=== PATIENT | female | born 1995 | race Caucasian/White ===

== ENCOUNTER → 2016-11-29 17:59 | Observation (INO) ==
[2016-11-29 16:23] LABS: Bilirubin,Urine Negative (Negative); Blood,Urine Negative (Negative); Clarity,Urine Cloudy (Clear); Color,Urine Yellow (Yellow); Glucose,Urine (UA) Normal (Normal); Ketones,Urine Negative (Negative); Leukocyte Esterase,Urine Trace (Negative); Nitrite,Urine Negative (Negative); PH,Urine 6.5 pH Units (5.0-8.0); Protein,Urine Negative (Neg-Trace); Specific Gravity,Urine 1.007 (1.010-1.025); Urobilinogen,Urine Normal (Normal)
[2016-11-29 16:25] LABS: Bacteria,Urine Few per hpf (None-Few); Hyaline Casts,Urine None Seen per lpf (None-Few); RBC,Urine 0-3 per hpf (0-3); Squamous Epithelial Cell,Urine Many per lpf (None-Few)
--- NOTE | 2016-11-29 17:16 | OB/GYN History & Physical ---
Date of Encounter: 11/29/16 Time of Encounter: 17:14 Assessment and Plan (1) 34 weeks gestation of Current visit: Yes Status: Acute - continue to monitor. - NST (2) Diarrhea Current visit: Yes Status: Acute - loperimide if symptoms progress - encourage fluid intake Qualifiers: Diarrhea type: unspecified type Qualified Code(s): R19.7 - Diarrhea, unspecified History of Present Illness HPI: Ms. Meek is a 21 year old female with an uncomplicated is presenting with a 2 day history of diarrhea and pelvic cramping. She reports a clear watery vaginal discharge. She denies any N/V. She denies feeling any contractions. Her cervix is posterior and firm. Past Med Surg Social Fam HX - Past Medical History Medical history: no medical history Psychiatric history: no psych history - Past Surgical History Surgical History: no surgical history - Social History Smoking Status: Never smoker Smokeless Tobacco Status: No Alcohol use: none Drug use: none - Family History Mother Hx Family Medical Disorders: No Obstetrical History - Pregnancies : 2 Para: 1 Medications and Allergies Vit/FA 1 each PO DAILY 08/29/15 [History] Ibuprofen [Motrin] 600 mg PO Q6H PRN #40 tablet 08/31/15 [Rx] Allergies Penicillins Allergy (Verified 08/29/15 09:42) Rash Review of System OB All systems PM: reviewed and no additional remarkable complaints except as stated - Constitutional Constitutional ROS IM: no fever(s), no headache(s), no lethargy, no weakness, no weight loss - Nose, mouth, and throat Nose, mouth and throat: no dizziness, no headache(s), no sinus pain, no sore throat, no vertigo - Cardiovascular Cardiovascular: no chest pain, no chest pain at rest, no dyspnea, no dyspnea on exertion, no edema, no leg edema, no lightheadedness, no pedal edema - Respiratory Respiratory: no cough, no dyspnea, no pain on inspiration, no chest congestion - Gastrointestinal Gastrointestinal: cramping (palvic), diarrhea (for 2 days), no abdominal pain, no bloating, no coffee ground emesis, no dyspepsia, no dysphagia, no hematemesis , no hematochezia, no melena, no nausea, no vomiting - Genitourinary Genitourinary: pelvic pain, vaginal discharge (minor, watery ), no difficulty urinating, no difficulty voiding, no hematuria, no urinary frequency, no urinary hesitancy, no urinary incontinence, no urinary urgency, no vaginal odor , no vaginal pruritis - Integumentary Integumentary: no erythema, no rash, no swelling, no jaundice Exam - Neck Neck exam: full ROM, normal inspection, trachea midline - Lungs Respiratory exam: CTAB - Cardiovascular Cardiovascular exam: RRR - Extremities Extremities exam: full ROM, normal capillary refill, normal inspection, radial pulses palpable and symetrical Results Abnormal lab results Urine Clarity Cloudy (Clear) A 11/29/16 16:00 Ur Specific [place] 1.007 (1.010-1.025) L 11/29/16 16:00 Ur Leukocyte Esterase Trace (Negative) H 11/29/16 16:00 Urine Microscopic WBC 3-5 per hpf (0-3) H 11/29/16 16:00 Ur Squamous Epith Cells Many per lpf (None-Few) H 11/29/16 16:00 Ur Culture Indicated? YES (NO) A 11/29/16 16:00 All other labs normal. - VTE Reasons for not Prescribing Prophylaxis: Treatment not Indicated - Low risk for VTE
--- NOTE | 2016-11-29 17:49 | Discharge Summary ---
Date of Encounter: 11/29/16 Time of Encounter: 17:48 - Discharge Diagnosis (1) 34 weeks gestation of Priority: Primary Status: Acute (2) Diarrhea Priority: Secondary Status: Acute Qualifiers: Diarrhea type: unspecified type Qualified Code(s): R19.7 - Diarrhea, unspecified - Discharge Medications Home Medications: Vit/FA 1 each PO DAILY 08/29/15 [History] Ibuprofen [Motrin] 600 mg PO Q6H PRN #40 tablet 08/31/15 [Rx] Allergies/Adverse Reactions: Allergies Penicillins Allergy (Verified 08/29/15 09:42) Rash Data Procedures and tests throughout hospitalization: Laboratory Tests 11/29/16 16:00 Urine Color Yellow Urine Clarity Cloudy A Urine pH 6.5 Ur Specific [place] 1.007 L Urine Protein Negative Urine Glucose (UA) Normal Urine Ketones Negative Urine Blood Negative Urine Nitrite Negative Urine Bilirubin Negative Urine Urobilinogen Normal Ur Leukocyte Esterase Trace H Urine Microscopic RBC 0-3 Urine Microscopic WBC 3-5 H Ur Squamous Epith Cells Many H Urine Bacteria Few Hyaline Casts None Seen Ur Culture Indicated? YES A Labs on day of discharge: Labs from last 24 hours 11/29/16 16:00 Urine Color Yellow Urine Clarity Cloudy A Urine pH 6.5 Ur Specific [place] 1.007 L Urine Protein Negative Urine Glucose (UA) Normal Urine Ketones Negative Urine Blood Negative Urine Nitrite Negative Urine Bilirubin Negative Urine Urobilinogen Normal Ur Leukocyte Esterase Trace H Urine Microscopic RBC 0-3 Urine Microscopic WBC 3-5 H Ur Squamous Epith Cells Many H Urine Bacteria Few Hyaline Casts None Seen Ur Culture Indicated? YES A Date of admission: 11/29/16 15:26 Primary care physician: Jerel Castro MD - Patient Status Disposition: Home, Self-Care Condition: Good Functional capacity at discharge: independent ambulation Overall status at discharge: patient is back to baseline - Discharge Instructions Follow Up With: Jerel Castro MD [Primary Care Provider] - Estelita Randolph DO [Partnered Physician] - - Diet and Activity Activity: resume usual activities as tolerated Diet: advance to your usual diet Hospital Course ASSOCIATE DOCTOR Time Attestation: Total time spent providing and/or coordinating discharge services: Time Spent: Less than 30 minutes - VTE Reasons for not Prescribing Prophylaxis: Treatment not Indicated - Low risk for VTE
== END | disposition home or self-care (01) ==
LOC: 1NENULAB
PROVIDERS: ADMIT Obstetrics & Gynecology; ATTEND Obstetrics & Gynecology

== ENCOUNTER → 2016-12-21 23:12 | Observation (INO) ==
--- NOTE | 2016-12-22 07:02 | OB/GYN Progress Note ---
Date of Encounter: 12/22/16 Time of Encounter: 07:01 (Triaged by RN) - Assessment and Plan (1) False labor Status: Acute Objective - Vital Signs Vital Signs: Intake and Output 12/21/16 12/21/16 12/22/16 15:59 23:59 07:59 Other: Weight 83 kg
== END | disposition home or self-care (01) ==
LOC: 1NENULAB

== ENCOUNTER 2016-12-23 16:29 | Inpatient (IN) ==
--- NOTE | 2016-12-23 12:14 | OB/GYN History & Physical ---
Date of Encounter: 12/23/16 Time of Encounter: 12:00 Assessment and Plan (1) and not yet delivered in third trimester Current visit: Yes Status: Acute (2) 38 weeks gestation of Current visit: Yes Status: Acute (3) Active labor Current visit: Yes Status: Acute We will admit patient will get her an epidural when ready and plan is to anticipate vaginal delivery. The patient's contractions space out she does not progress on her own after the epidural we will augment with Pitocin. History of Present Illness HPI: Ms. Meek is a 21 year old female 2 para 1 at 38 and one sevenths weeks who presented to labor and delivery with complaint of contractions every 2 minutes starting approximately 2 AM. Patient states she started having contractions by this morning they are every 2-3 minutes was very uncomfortable and came to labor and delivery. Patient was socrates every 2 minutes on admission but was still only 2 cm. Patient was encouraged to ambulate which she did for approximately 1 hour and she got back into bed she states contractions were more uncomfortable and she was now 3 cm. Patient is wanting an epidural when allowed to have one. She denies any leaking of fluid care has been unremarkable. Patient just delivered one year ago with no complications. Patient's GBS status was negative Past Med Surg Social Fam HX - Past Medical History Medical history: no medical history, migraine, other (History of narcolepsy) Psychiatric history: depression - Past Surgical History Surgical History: no surgical history - Social History Smoking Status: Never smoker Smokeless Tobacco Status: No Alcohol use: none Drug use: none Occupational status: unemployed Current living situation: Home - Independent Activity Level: Independent ambulation Recent Out of Country Travel Within the Last 8 Weeks: No Exposure or Possible Exposure to Illness During Travel: No - Family History Father Adopted: No Living Status: Still Living Hx Family Cardiac Disorders: No Hx Family Respiratory Disorders: No Hx Family Cancer: No Hx Family GI Disorders: No Hx Family Genitourinary Disorders: No Hx Family Endocrine Disorder: No Hx Family Musculoskeletal Disorders: No Hx Family Neuromuscular Disorders: No Hx Family Neurologic Disorders: No Hx Family HEENT Disorders: No Hx Family Autoimmune Disorders: No Hx Family Reproductive Disorders: No Hx Family Psychosocial Disorders: No Hx Family Medical Disorders: No - Additional Family History Additional family history: Family history unremarkable Obstetrical History - Pregnancies : 2 Para: 1 Term: 1 : 0 Ab's: 0 Livin Medications and Allergies Allergies Penicillins Allergy (Verified 08/29/15 09:42) Rash Review of System OB All systems PM: reviewed and no additional remarkable complaints except as stated - Genitourinary Genitourinary: other (Patient with complaint of contractions every 2 minutes) Exam - Constitutional Constitutional: well developed, well nourished, average body habitus, moderate distress - HEENT HEENT: PERRL, Mucus Membranes Moist - Neck Neck exam: full ROM - Lungs Respiratory exam: CTAB - Cardiovascular Cardiovascular exam: RRR - Abdomen Abdomen: Present: bowel sounds normal, gravid - Vagina Vagina: Present: normal moisture - Cervix Dilation: 3 Effacement: 80 Station: -2 - Uterus Uterus exam: Present: normal size - Comments Comments: heart tones 140s reactive contractions every 2 minutes Results All other labs normal. - VTE Reasons for not Prescribing Prophylaxis: Treatment not Indicated - Low risk for VTE
[2016-12-23 13:01] LABS: Basophils # 0.1 K/mcL (0.0-0.2); Basophils % 0.4 %; Eosinophils # 0.1 K/mcL (0.0-0.6); Eosinophils % 0.5 %; Hematocrit 32.2 % (35.3-44.9); Immature Granulocytes % 0.8 % (0-4); Lymphocytes # 1.8 K/mcL (0.6-4.6); Mean Corpuscular HGB Conc 31.1 g/dL (31.6-35.5); Mean Corpuscular Hemoglobin 23.8 pg (28.0-33.3); Mean Corpuscular Volume 76.5 fL (83.0-100.0); Mean Platelet Volume 11.5 fL (9.4-12.4); Monocytes # 0.4 K/mcL (0.0-1.3); Monocytes % 3.9 %; Neutrophils # 8.7 K/mcL (1.6-8.9); Platelet Count 232 K/mcL (140-400); Red Blood Count 4.21 M/mcL (3.82-4.97); Red Cell Distribution Width 15.4 % (11.5-14.5); Segmented Neutrophils % 78.4 %
--- NOTE | 2016-12-23 16:22 | OB Labor Progress Note ---
Date of Encounter: 12/23/16 Time of Encounter: 16:20 Labor Progress Note - Subjective Subjective: Patient states contractions are stronger but did space out a little bit. - Cervix Cervix: 4/80/-2 AROM clear fluid - Heart Tones Heart Tones: heart tones 140s reactive - Placentia Placentia: Contractions every 3-5 minutes - Plan Plan: We will continue current care will get patient under epidural when she requests and will augment with Pitocin if contractions do not get back to 2 minutes like they were. Plan is to anticipate vaginal delivery
[~2016-12-23 16:29] MED LIST: *HR* Nalbuphine 20 MG/ML AMPUL IVP PRN; Famotidine 20 MG/2 ML VIAL IVP PRN; Naloxone 0.4 MG/ML INJ IVP PRN; Ringers Solution, Lactated 1,000 ML IVC SCH
[2016-12-23] MEDS ORDERED: Oxytocin 20 units/ LR 1000 mL 20 UNIT/1,000 ML BAG IVC SCH (18:15)
[2016-12-23] MEDS ORDERED: *HR* Nalbuphine 20 MG/ML AMPUL ONE (18:17)
[2016-12-23] MEDS ORDERED: *HR* FentaNYL (PF) 100 MCG/2 ML VIAL EP ONE (19:33)
[2016-12-23] MEDS ORDERED: Bupivacaine-MPF 0.25% 10 ML VIAL EP ONE (19:33)
--- NOTE | 2016-12-23 19:38 | Anesthesia Evaluation PreOp ---
Date of Encounter: 12/23/16 Time of Encounter: 19:36 - Past History Planned Operation: labor epidural Cardiac History: Denies any Significant Hx Pulmonary History: Denies Any Significant HX TITLE I ASSISTANT History: Denies Any Significant HX Other Medical History: GERD Anesthesia History: No Prior Anesthetic Complications (never had GA. Previous epidural, no problems.) : Yes Alcohol Use: none Drug use: none Medications and Allergies Allergies Penicillins Allergy (Verified 08/29/15 09:42) Rash - Meds/Allergy Pre-op Review Medications Reviewed: Yes Allergies Reviewed: Yes Beta Blockers on Current Med List: No Anesthesia Results - Labs 12/23/16 12:46 Anesthesia Exam 115/65, 118, 16, 99%. Height: 5'6" Weight: 80 kg Pain Scale: 10 Pain Scale Used: Numeric (1 - 10) - HEENT Pupil (Motor): Pupils equal, EOMI Mallampati: II Teeth: Normal Oral Opening: Greater than 3 - TITLE I ASSISTANT LOC: Oriented TITLE I ASSISTANT Motor: Normal RUE, Normal LUE, Normal RLE, Normal LLE, Normal Face TITLE I ASSISTANT Sensory: Normal: RUE, LUE, RLE, LLE, Face - Cardiac Rhythm: Regular Murmur: None - Pulmonary Breath Sounds: bilateral Clear Respiratory Effort: Symmetrical Anesthesia Assess/Plan ASA Score: 2 Modified [place] Scale for Level of Consciousness: Cooperative, oriented, and tranquil Anesthetic Plan: Regional Monitoring Plan: Standard Monitors
[2016-12-23] MEDS ORDERED: *HR* FentaNYL (PF) 100 MCG/2 ML VIAL ONE ×2 (19:45→21:26)
[2016-12-23] MEDS ORDERED: Epidural Premix (fent/bupiv) 110 ML EP ONE (19:45)
[2016-12-23] MEDS ORDERED: Bupivacaine-MPF 0.25% 10 ML VIAL ONE ×3 (19:45→21:26)
[2016-12-23] MEDS ORDERED: Epidural Premix (fent/bupiv) 110 ML EP SCH (19:45)
--- NOTE | 2016-12-23 20:16 | Anesthesia Procedures ---
Date of Encounter: 12/23/16 Time of Encounter: 19:47 Procedures: Anesthesia - Epidural/Spinal Patient ID/Chart reviewed: Yes Patient examined: Yes OB Eval: Gestational age: 38 OB Eval: : 2 OB Eval: Hx Para: 1 OB Eval: Dilated at (cm): 4 OB Eval: Contractions: Non-stressed pattern Consent Obtained: Yes Supplemental Oxygen: None/Room Air Site Prep: Aseptic Technique, Sterile prep and drape, Povidone-Iodine 1% Patient position: upright Local Anesthetic: Lidocaine 1% Amount of Local Anesthetic used: 3 Touhy Needle Gauge: 18 Touhy Needle Depth (cm): 5 Catheter Depth at Skin (cm): 18 Test Dose (1.5% Lido + Epi): Volume given (mls): 3 Test Dose Result: Negative Loading Dose: 0.25% Marcaine (mls): 8 Loading Dose: Fentanyl (mcg): 100 Loading Dose Administered: Thru Catheter Infusion Med: 0.125% Bupivacaine w/ 2 mcg/ml Fentanyl Infusion Rate (mls/hr): [address]: Tegaderm, Tape Interspace Used: L3-L4 Loss of Resistance (YAEL): Yes Blood: No CSF: No Paresthesia: No Vitals + FHT's: 3 Vital Signs Time 1950 5 1999 2004 2009 2014 BP 115/65 137/88 138/81 137/72 116/79 212/81 Pulse 104 112 91 96 90 92 FHTs 130 130 130 130 130 130
--- NOTE | 2016-12-23 21:24 | Anesthesia Progress Note ---
Date of Encounter: 12/23/16 Time of Encounter: 20:45 Anesthesia Note - Note Note: 12/23/16 21:16 Upon checking LDR8 to see if epidural relieved contraction pain, patient stated that it did initially but she was feeling pain to lower left abdomen that is . States is only on left side and states legs feel heavy and "tingly". Checked catheter, no migration, but pulled back from 18 to 15 and placed patient on her left side. Approximately 15 minutes later, patient has had no relief form interventions. Gave 5ml 0.25% bupivacaine with 5ml saline bolus. Tolerated well and vss. Patient very anxious and crying. RN placed vieira catheter and drained 400ml form bladder. Upon cervical check, patient had gone from 4cm to 7cm. States is still feeling some pain to lower left abdomen only. Dosed epidural with remaining 5ml 0.25% bupivacaine and 5ml saline and placed back on left side.
--- NOTE | 2016-12-23 22:02 | Anesthesia Procedures ---
Date of Encounter: 12/23/16 Time of Encounter: 21:35 Procedures: Anesthesia - Epidural/Spinal Patient ID/Chart reviewed: Yes Patient examined: Yes OB Eval: Gestational age: 38 OB Eval: : 2 OB Eval: Hx Para: 1 OB Eval: Dilated at (cm): 7 OB Eval: Contractions: Non-stressed pattern Consent Obtained: Yes Supplemental Oxygen: None/Room Air Site Prep: Aseptic Technique, Sterile prep and drape, Povidone-Iodine 1% Patient position: upright Local Anesthetic: Lidocaine 1% Amount of Local Anesthetic used: 3 Touhy Needle Gauge: 18 Touhy Needle Depth (cm): 5 Catheter Depth at Skin (cm): 18 Test Dose (1.5% Lido + Epi): Volume given (mls): 3 Test Dose Result: Negative Loading Dose: 0.25% Marcaine (mls): 5 Loading Dose: Fentanyl (mcg): 100 Loading Dose Administered: Thru Catheter Infusion Med: 0.125% Bupivacaine w/ 2 mcg/ml Fentanyl Infusion Rate (mls/hr): [address]: Tegaderm, Tape Interspace Used: L2-L3 Loss of Resistance (YAEL): Yes Blood: No CSF: No Paresthesia: No Procedure: Patient requested that epidural be placed again after redose and position changes did not aleviate "hot spot " pain to left lower abdomen. Vitals + FHT's: vss
[2016-12-23] MEDS ORDERED: Lidocaine 1% 20 ML MDV ONE (22:59)
--- NOTE | 2016-12-23 23:47 | OB/GYN Procedure Note ---
Delivery - Delivery Date: 12/23/16 Provider: Leo Navas Intrapartum events: none Delivery augmentation: rupture of membranes, pitocin Delivery monitor: external FHT, external uterine Anesthesia: local, epidural Estimated Blood Loss: 100 - Infant (s) Infant A Infant Delivery Date: 12/23/16 Infant Delivery Time: 23:07 Presentation: vertex Position: JOSE LUIS Route of delivery: Gender: Male Viability: Viable Pounds: 7 Ounces: 14 Weight Gram: 3.57 kg at 1 minute: 8 at 5 mins: 9 Shoulder Dystocia: not encountered Specimens collected: cord blood Placenta: spontaneous Cord: nuchal cord, nuchal cut - Repair Episiotomy: none Laceration Description: Perineal - 2nd Degree - Complications Delivery complications: none Delivery comments: Patient is a 21-year-old 2 para 1 at 38-1/7 weeks who presented to labor and delivery in active labor. Patient has started socrates in the middle of the night and they got to where there were 2 minutes apart this morning. Upon arrival to labor and delivery patient was 2 cm an hour later was 3 cm and she was 4 cm. Patient was admitted at this point allowed to progress was artificially ruptured when she was 44 with clear fluid. Patient did well with some Nubain and then finally requested an epidural. We did have to augment her labor with some Pitocin the epidural did not work. They did attempt a second time also did not work. Patient progressed to complete and pushed for approximately 10 minutes delivering a viable male infant in left occiput anterior presentation at 2307. There was a tight nuchal 1 it was clamped and cut and the infant was then fully delivered was bulb suctioned on the abdomen after is were 8 at 1 minute 9 at 5 minutes weight was 7 lbs. 14 oz. Placenta was then delivered spontaneously, 3 vessel cord, worm packer Dr. Navas, anesthesia is epidural local, estimated blood loss 100 mL. Patient had a second-degree perineal laceration repaired with 3-0 Vicryl usual fashion. Cervix and vagina was visualized intact. Patient tolerated the delivery well will be observed 2 hours before being taken to floor. - Disposition Mom disposition: stable in LDR disposition: stable in LDR
[2016-12-24] MEDS ORDERED: Acetaminophen 325 MG TABLET PO PRN (01:16)
[2016-12-24] MEDS ORDERED: Oxytocin 20 units/ LR 1000 mL 20 UNIT/1,000 ML BAG IVC ONE (01:16)
[2016-12-24] MEDS ORDERED: Oxytocin 20 units/ LR 1000 mL 20 UNIT/1,000 ML BAG IV SCH (01:16)
[2016-12-24] MEDS ORDERED: Rho Immune Globulin 1,500 UNIT SYRINGE IM PRN (01:16)
[2016-12-24] MEDS ORDERED: Measles/Mumps/Rubella Vacc 0.5 ML VIAL SQ PRN (01:16)
[2016-12-24] MEDS ORDERED: Ibuprofen 600 MG TABLET PO PRN (01:16)
[2016-12-24 05:00] LABS: Basophils # 0.1 K/mcL (0.0-0.2); Basophils % 0.4 %; Eosinophils % 0.1 %; Hematocrit 31.1 % (35.3-44.9); Hemoglobin 9.5 g/dL (11.5-15.4); Immature Granulocytes % 0.5 % (0-4); Lymphocytes # 1.7 K/mcL (0.6-4.6); Lymphocytes % 11.2 %; Mean Corpuscular HGB Conc 30.5 g/dL (31.6-35.5); Mean Corpuscular Hemoglobin 24.1 pg (28.0-33.3); Mean Corpuscular Volume 78.7 fL (83.0-100.0); Mean Platelet Volume 12.3 fL (9.4-12.4); Monocytes # 0.7 K/mcL (0.0-1.3); Monocytes % 4.5 %; Neutrophils # 12.4 K/mcL (1.6-8.9); Platelet Count 235 K/mcL (140-400); Red Blood Count 3.95 M/mcL (3.82-4.97); Red Cell Distribution Width 15.3 % (11.5-14.5); Segmented Neutrophils % 83.3 %
--- NOTE | 2016-12-24 08:42 | OB/GYN Progress Note ---
Date of Encounter: 12/24/16 Time of Encounter: 08:40 - Assessment and Plan (1) Status post vaginal delivery Current Visit: No Status: Resolved Continue to monitor. CBC in AM. Subjective - Subjective Principal diagnosis: s/p #1 Patient reports: appetite normal, voiding normally, pain well controlled, ambulating normally : doing well, nursing well Objective - Latest Vital Signs Latest vital signs: Vital Signs Temp Pulse Resp BP Pulse Ox 12/24/16 08:05 98.6 F 76 16 118/79 12/24/16 04:00 98.1 F 90 14 132/81 97 12/24/16 02:45 98.2 F 102 14 111/71 97 12/24/16 01:45 97.6 F 90 14 122/79 99 Intake and Output 12/23/16 12/24/16 12/24/16 23:59 07:59 15:59 Intake Total 600 / 600 600 / 600 Output Total 600 / 600 Balance 0 / 0 600 / 600 Intake: Oral 200 / 200 600 / 600 Other 400 / 400 Output: Urine 600 / 600 Other: Weight 75.4 kg Patient Weight 12/24/16 23:59 Weight 75.4 kg - Exam Lungs: bilateral: normal Chest: Normal S1, Normal S2 Extremities: Present: normal. Absent: tenderness Abdomen: Present: soft. Absent: tenderness Uterus: Present: firm Uterus Position: 1 Finger Below Umbilicus - Labs Labs: Laboratory Results - last 24 hr 12/23/16 12/24/16 12/24/16 12:46 00:10 04:01 WBC 11.2 H 15.0 H RBC 4.21 3.95 Hgb 10.0 L 9.5 L Hct 32.2 L 31.1 L MCV 76.5 L 78.7 L MCH 23.8 L 24.1 L MCHC 31.1 L 30.5 L RDW 15.4 H 15.3 H Plt Count 232 235 MPV 11.5 12.3 Immature Gran % 0.8 0.5 Seg Neutrophils % 78.4 83.3 Lymphocytes % 16.0 11.2 Monocytes % 3.9 4.5 Eosinophils % 0.5 0.1 Basophils % 0.4 0.4 Neutrophils # 8.7 12.4 H Lymphocytes # 1.8 1.7 Monocytes # 0.4 0.7 Eosinophils # 0.1 0.0 Basophils # 0.1 0.1 Baby's Blood Type O RH POSITIVE Mother's Blood Type A RH NEGATIVE Rhogam Indicated YES
[2016-12-24] MEDS: Prenatal Vit/FA 1 EACH TABLET PO SCH (09:07)
[2016-12-24] MEDS ORDERED: Lanolin 7 G OINT...G. TP PRN (18:06)
[2016-12-25 07:53] VITALS: BP 121/83
--- NOTE | 2016-12-25 08:43 | Discharge Summary ---
Date of Encounter: 12/25/16 Time of Encounter: 08:40 - Discharge Diagnosis (1) Vaginal delivery Priority: Primary Status: Acute Comments: Continue routine care discharge home today follow up with Dr. Navas in 4-6 weeks (2) Breast feeding status of mother Priority: Secondary Status: Acute Comments: support prn - Discharge Medications Prescriptions: Breast Pump [BREAST PUMP] 1 each .ROUTE AD #1 each Home Medications: Breast Pump [BREAST PUMP] 1 each .ROUTE AD #1 each 12/25/16 [Rx] Vit/FA 1 each PO DAILY tablet 12/25/16 [Rx] Allergies/Adverse Reactions: Allergies Penicillins Allergy (Verified 08/29/15 09:42) Rash Data Procedures and tests throughout hospitalization: Laboratory Tests 12/23/16 12/24/16 12/24/16 12:46 00:10 04:01 WBC 11.2 H 15.0 H RBC 4.21 3.95 Hgb 10.0 L 9.5 L Hct 32.2 L 31.1 L MCV 76.5 L 78.7 L MCH 23.8 L 24.1 L MCHC 31.1 L 30.5 L RDW 15.4 H 15.3 H Plt Count 232 235 MPV 11.5 12.3 Immature Gran % 0.8 0.5 Seg Neutrophils % 78.4 83.3 Lymphocytes % 16.0 11.2 Monocytes % 3.9 4.5 Eosinophils % 0.5 0.1 Basophils % 0.4 0.4 Neutrophils # 8.7 12.4 H Lymphocytes # 1.8 1.7 Monocytes # 0.4 0.7 Eosinophils # 0.1 0.0 Basophils # 0.1 0.1 Screen NEGATIVE Baby's Blood Type O RH POSITIVE Mother's Blood Type A RH NEGATIVE Rhogam Indicated YES Rhogam Req for Mother 1 Labs on day of discharge: Labs from last 24 hours 12/24/16 00:10 Screen NEGATIVE Baby's Blood Type O RH POSITIVE Mother's Blood Type A RH NEGATIVE Rhogam Indicated YES Rhogam Req for Mother 1 Date of admission: 12/23/16 16:29 Consults: 12/24/16 01:16 Consult to Law Professor [CONS] Routine Comment: Vaginal delivery, consult needed Discharging clinician: Sandra Hammer Anticipated date of discharge: 12/25/16 - Patient Status Disposition: Home, Self-Care Condition: Good Functional capacity at discharge: independent ambulation - Discharge Instructions - Diet and Activity Activity: increase activity as tolerated Diet: regular diet Hospital Course Delivery: Episiotomy: none Laceration: 2nd degree Other procedures: none complications: none Discharge diagnosis: IUP at term delivered [place] baby: male (breast feeding) Time Attestation: Total time spent providing and/or coordinating discharge services: Time Spent: Less than 30 minutes Exam - Constitutional Vitals: Temp Pulse Resp BP Pulse Ox 97.6 F 69 16 121/83 99 12/25/16 07:51 12/25/16 07:51 12/25/16 07:51 12/25/16 07:51 12/24/16 19:25 General appearance IM: A&O X 3, pleasant, answers questions appropriately - Respiratory Respiratory exam: Present: CTAB - Cardiovascular Cardiovascular exam IM: Present: RRR, +S1, +S2 - GI/Abdominal GI/Abdominal exam IM: normal bowel sounds - Uterine Tone: Firm Uterus Position: 2 Fingers Below Umbilicus, Midline - Extremities Exam Extremities exam IM: Present: normal capillary refill - Neurological Exam Neurological exam: alert, oriented X3, reflexes normal
[2016-12-25] MEDS: Prenatal Vit/FA 1 EACH TABLET PO SCH (10:23)
== END 2016-12-25 11:45 | disposition home or self-care (01) | DRG 775 ==
LOC: 1NENULAB → 1NENUOBS 12-24 01:15
PROVIDERS: ADMIT Obstetrics & Gynecology; ATTEND Obstetrics & Gynecology

== ENCOUNTER 2017-12-22 08:00 | Inpatient (IN) ==
[2017-12-22] MEDS ORDERED: Naloxone 0.4 MG/ML INJ IVP PRN (08:28)
[2017-12-22] MEDS ORDERED: Famotidine 20 MG/2 ML VIAL IVP PRN (08:28)
--- NOTE | 2017-12-22 08:34 | OB/GYN History & Physical ---
Date of Encounter: 12/22/17 Time of Encounter: 08:30 Assessment and Plan (1) and not yet delivered in third trimester Current visit: Yes Status: Acute (2) 39 weeks gestation of Current visit: Yes Status: Acute (3) Elective induction of labor planned Current visit: Yes Status: Acute Plan is to induce with a Ramirez catheter and Cytotec plan is to anticipate vaginal delivery History of Present Illness HPI: Ms. Meek is a 22 year old female 3 para 2001 at 39 and one sevenths weeks by a 9-0/7 week ultrasound who presented for induction of labor secondary term with favorable cervix. 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 Patient's had an uncomplicated course and had a favorable cervix. She has been having occasional contractions but nothing time of all denies any leaking of fluid still having good movement. Patient is GBS negative Rh- rubella positive Past Med Surg Social Fam HX - Past Medical History Medical history: no medical history, migraine, other (narcolepsy) Psychiatric history: depression - Past Surgical History Surgical History: no surgical history - Social History Smoking Status: Never smoker Smokeless Tobacco Status: No Alcohol use: none Drug use: none Occupational status: employed, student Current living situation: Home - Independent Activity Level: Independent ambulation Recent Out of Country Travel Within the Last 8 Weeks: No Exposure or Possible Exposure to Illness During Travel: No - Family History Father Adopted: No Living Status: Still Living Hx Family Cardiac Disorders: No Hx Family Respiratory Disorders: No Hx Family Cancer: No Hx Family GI Disorders: No Hx Family Genitourinary Disorders: No Hx Family Endocrine Disorder: Yes (Hepatitis C+) Hx Family Musculoskeletal Disorders: No Hx Family Neuromuscular Disorders: No Hx Family Neurologic Disorders: No Hx Family HEENT Disorders: No Hx Family Autoimmune Disorders: No Hx Family Reproductive Disorders: No Hx Family Psychosocial Disorders: No Hx Family Medical Disorders: No Obstetrical History - Pregnancies : 3 Para: 2 Term: 2 : 0 Ab's: 0 Livin Medications and Allergies Vit/FA 1 each PO DAILY tablet 12/25/16 [Rx] 3 Allergy/AdvReac Type Severity Reaction Status Date / Time Penicillins Allergy Rash Verified 08/29/15 09:42 Review of System OB All systems PM: reviewed and no additional remarkable complaints except as stated Exam - Constitutional Constitutional: well developed, well nourished, no acute distress, average body habitus - HEENT HEENT: EOMI, PERRL, Mucus Membranes Moist - Neck Neck exam: full ROM - Lungs Respiratory exam: CTAB - Cardiovascular Cardiovascular exam: RRR - Cervix Dilation: 2 Effacement: 80 Station: -1 (Ramirez catheter with 30 mL balloon inflated and 25 g of Cytotec placed in the posterior cul-de-sac) Results Result Diagrams: 12/22/17 08:56 All other labs normal. - VTE Reasons for not Prescribing Prophylaxis: Treatment not Indicated - Low risk for VTE
--- NOTE | 2017-12-22 08:40 | Anesthesia Evaluation PreOp ---
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: Denies Any Significant HX Other Medical History: Denies Any Significant HX Anesthesia History: No Prior Anesthetic Complications, Past Anesthesia Alcohol Use: none Drug use: none Medications and Allergies Vit/FA 1 each PO DAILY tablet 12/25/16 [Rx] 3 Allergy/AdvReac Type Severity Reaction Status Date / Time Penicillins Allergy Rash Verified 08/29/15 09:42 Anesthesia Exam - HEENT Pupil (Motor): Pupils equal Mallampati: II Teeth: Normal Oral Opening: Greater than 3 - BUILDING PERFORMANCE SPECIALIST LOC: Oriented BUILDING PERFORMANCE SPECIALIST Motor: Normal RUE, Normal LUE, Normal RLE, Normal LLE, Normal Face BUILDING PERFORMANCE SPECIALIST Sensory: Normal: RUE, LUE, RLE, LLE, Face - Cardiac Rhythm: Regular Murmur: None - Pulmonary Breath Sounds: bilateral Clear Respiratory Effort: Symmetrical Anesthesia Assess/Plan ASA Score: 2 Modified [place] Scale for Level of Consciousness: Cooperative, oriented, and tranquil Anesthetic Plan: Regional Monitoring Plan: Standard Monitors Recovery Plan: PACU
[2017-12-22] MEDS ORDERED: Epidural Premix (fent/bupiv) 110 ML EP ONE (08:45)
[2017-12-22 09:04] LABS: Basophils % 0.3 %; Eosinophils # 0.1 K/mcL (0.0-0.6); Eosinophils % 1.2 %; Hematocrit 31.9 % (35.3-44.9); Hemoglobin 9.6 g/dL (11.5-15.4); Immature Granulocytes % 0.3 % (0-4); Lymphocytes # 1.7 K/mcL (0.6-4.6); Mean Corpuscular HGB Conc 30.1 g/dL (31.6-35.5); Mean Corpuscular Hemoglobin 23.4 pg (28.0-33.3); Mean Corpuscular Volume 77.8 fL (83.0-100.0); Mean Platelet Volume 11.6 fL (9.4-12.4); Monocytes # 0.5 K/mcL (0.0-1.3); Monocytes % 5.3 %; Neutrophils # 7.5 K/mcL (1.6-8.9); Platelet Count 236 K/mcL (140-400); Red Cell Distribution Width 17.6 % (11.5-14.5); Segmented Neutrophils % 75.9 %
[2017-12-22 09:13] LABS: Amphetamine Screen,Urine Negative ng/mL (Cutoff=1000); Barbiturate Screen,Urine Negative ng/mL (Cutoff=200); Benzodiazepines Screen,Urine Negative ng/mL (Cutoff=200); Cannabinoid Screen,Urine Negative ng/mL (Cutoff = 50); Cocaine Screen,Urine Negative ng/mL (Cutoff= 300); Opiate Screen,Urine Negative ng/mL (Cutoff=300); Phencyclidine Screen,Urine Negative ng/mL (Cutoff=25)
[2017-12-22] MEDS ORDERED: miSOPROStol 25 MCG TABLET VG SCH ×2 (09:15→12:00)
[2017-12-22] MEDS: Ringers Solution, Lactated 1,000 ML IVC SCH ×3 (09:29→16:46)
--- NOTE | 2017-12-22 12:40 | OB Labor Progress Note ---
Date of Encounter: 12/22/17 Time of Encounter: 12:30 Labor Progress Note - Subjective Subjective: patient states feeling contractions not that uncomfortable yet, vieira is out - Cervix Cervix: 4/80/-1 AROM clear - Heart Tones Heart Tones: FHT's 140 reactive - [place]: contractions every 2 min - Plan Plan: continue current care anticipate
--- NOTE | 2017-12-22 14:32 | Anesthesia Procedures ---
Date of Encounter: 12/22/17 Time of Encounter: 14:09 Procedures: Anesthesia - Epidural/Spinal Patient ID/Chart reviewed: Yes Patient examined: Yes OB Eval: Gestational age: term OB Eval: : 3 OB Eval: Hx Para: 2 OB Eval: Contractions: Non-stressed pattern Consent Obtained: Yes Supplemental Oxygen: None/Room Air Site Prep: Aseptic Technique, Sterile prep and drape, 0.5% Chlorhexidine/Alcohol Patient position: upright Local Anesthetic: Lidocaine 1% Amount of Local Anesthetic used: 2 Touhy Needle Gauge: 18 Touhy Needle Depth (cm): 6 Catheter Depth at Skin (cm): 10 Test Dose (1.5% Lido + Epi): Volume given (mls): 3 Test Dose Result: Negative Loading Dose: Other: 10 ml from solution Loading Dose Administered: Thru Catheter Infusion Med: 0.125% Bupivacaine w/ 2 mcg/ml Fentanyl Infusion Rate (mls/hr): [address]: Tegaderm, Tape Interspace Used: L3-L4 Loss of Resistance (YAEL): Yes (saline) Blood: No CSF: No Paresthesia: No Procedure: vss though out, FHR stable per RN's
--- NOTE | 2017-12-22 16:14 | OB Labor Progress Note ---
Date of Encounter: 12/22/17 Time of Encounter: 16:00 Labor Progress Note - Subjective Subjective: patient not feeling contractions very comfortable after her epidural - Cervix Cervix: 6/80/0 - Heart Tones Heart Tones: FHT's 140's reactive - [place]: IUPC placed contractions every 3-5 min irregular - Plan Plan: will augment pitocin
[2017-12-22] MEDS ORDERED: Oxytocin 20 units/ LR 1000 mL 20 UNIT/1,000 ML BAG IVC SCH ×2 (16:30→22:21)
--- NOTE | 2017-12-22 20:16 | OB/GYN Procedure Note ---
Delivery - Delivery Date: 12/22/17 Provider: Leo Navas Intrapartum events: none Delivery induction: vieira, misoprostol Delivery augmentation: rupture of membranes, pitocin Delivery monitor: external FHT, external uterine, internal uterine Anesthesia: epidural Estimated Blood Loss: 100 - Infant (s) Infant A Infant Delivery Date: 12/22/17 Delivery Time: 19:34 Presentation: vertex Position: JOSE LUIS Route of delivery: Gender: Female Viability: Viable Pounds: 7 Ounces: 10 Weight Gram: 3.465 kg at 1 minute: 9 at 5 mins: 9 Shoulder Dystocia: not encountered Specimens collected: cord blood Placenta: spontaneous Cord: 3 umbilical vessels - Repair Episiotomy: none Laceration Description: Perineal - 2nd Degree - Complications Delivery complications: none Delivery comments: Patient is a 22-year-old 3 para 2 at 39 and was not sutured presented for induction of labor secondary to term with favorable cervix patient received a Vieira catheter and Cytotec this spell out approximately 2 hours later she was artificially ruptured with clear fluid she received an epidural when she was 4-5 cm and progressed appropriately patient getting complete push for approximately 10 minutes delivering a viable female in left occiput anterior presentation at 1934. There was no meconium, no nuchal cord, the infant was bulb suctioned on the abdomen. Apgars were 9 at 1 minute, 9 at 5 minutes, infant weight was 7 lbs. 10 oz. 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 Patient has second-degree perineal laceration repaired with 3-0 Vicryl in usual fashion. Cervix and vagina was visualized intact. She will be observed 2 hours before being taken the floor. - Disposition Mom disposition: stable in LDR disposition: stable in LDR
[2017-12-22] MEDS ORDERED: Rho Immune Globulin 1,500 UNIT SYRINGE IM PRN (22:21)
[2017-12-22] MEDS ORDERED: Measles/Mumps/Rubella Vacc 0.5 ML VIAL SQ PRN (22:21)
[2017-12-22] MEDS ORDERED: Acetaminophen 325 MG TABLET PO PRN (22:21)
[2017-12-22] MEDS ORDERED: Benzocaine/Menthol 56 GM AEROSOL SPRAY TP PRN (22:24)
[2017-12-23] MEDS: Ibuprofen 600 MG TABLET PO PRN ×2 (06:14→15:20)
[2017-12-23 08:10] LABS: Basophils % 0.4 %; Eosinophils # 0.1 K/mcL (0.0-0.6); Eosinophils % 1.2 %; Hematocrit 30.1 % (35.3-44.9); Hemoglobin 8.9 g/dL (11.5-15.4); Immature Granulocytes % 0.2 % (0-4); Lymphocytes # 1.9 K/mcL (0.6-4.6); Lymphocytes % 19.6 %; Mean Corpuscular HGB Conc 29.6 g/dL (31.6-35.5); Mean Corpuscular Hemoglobin 23.1 pg (28.0-33.3); Monocytes # 0.7 K/mcL (0.0-1.3); Monocytes % 6.9 %; Platelet Count 222 K/mcL (140-400); Red Blood Count 3.86 M/mcL (3.82-4.97); Red Cell Distribution Width 17.6 % (11.5-14.5); Segmented Neutrophils % 71.7 %
[2017-12-23] MEDS: Prenatal Vit/FA 1 EACH TABLET PO SCH (08:31)
[2017-12-23] MEDS ORDERED: Prenatal Vit/FA 1 EACH TABLET PO SCH (09:00)
--- NOTE | 2017-12-23 09:36 | OB/GYN Progress Note ---
Date of Encounter: 12/23/17 Time of Encounter: 09:34 - Assessment and Plan (1) Vaginal delivery Current Visit: Yes Status: Acute Continue routine care Meeting appropriate milestones. Discharge home today or tomorrow; patient elects tomorrow. (2) Breast feeding status of mother Current Visit: Yes Status: Acute Breast feeding well Subjective - Subjective Principal diagnosis: Vaginal Delivery Interval history: S/P vaginal delivery day 1 Pain well controlled Passing flatus; tolerating regular Lochia light and without clots Voiding without difficulty Breast feeding well VSS Patient requests discharge home tomorrow. Patient reports: appetite normal, voiding normally, pain well controlled, ambulating normally [place]: doing well, nursing well Objective - Latest Vital Signs Latest vital signs: Vital Signs Temp Pulse Resp BP Pulse Ox 12/23/17 08:38 98.1 F 88 12 118/83 98 12/23/17 04:15 97.8 F 97 16 104/67 98 12/23/17 00:10 98.3 F 100 16 109/69 98 12/22/17 23:15 98.3 F 107 16 118/82 99 12/22/17 22:10 98.1 F 97 16 118/69 98 Intake and Output 12/22/17 12/23/17 12/23/17 23:59 07:59 15:59 Intake Total 1999 1234 / 1234 Output Total 700 / 700 1450 / 1450 Balance 1300 / 1300 -216 / -216 Intake: IV Fluids 1999 334 / 334 Pitocin 20 unit In 1,000 ml @ 334 / 334 125 mls/hr IVC .Q8H RIA Rx#: [id number] Lactated Ringers 1,000 ML @ 125 1999 / 2000 mls/hr IVC .Q8H RIA Rx#: [id number] Oral 900 / 900 Output: Urine 1450 / 1450 Estimated Blood Loss 100 / 100 Catheter 600 / 600 Other: Weight 77.2 kg 76.884 kg Patient Weight 12/23/17 23:59 Weight 76.884 kg - Exam Lungs: bilateral: normal Chest: Normal S1, Normal S2 Extremities: Present: normal, edema (trace BLE) Abdomen: Present: normal appearance, soft. Absent: gravid, tenderness Uterus: Present: normal, firm. Absent: bogginess, tenderness Uterus Position: 2 Fingers Below Umbilicus, Midline - Labs Labs: Laboratory Results - last 24 hr 12/22/17 12/23/17 20:08 07:39 WBC 9.8 RBC 3.86 Hgb 8.9 L Hct 30.1 L MCV 78.0 L MCH 23.1 L MCHC 29.6 L RDW 17.6 H Plt Count 222 MPV 12.0 Immature Gran % 0.2 Seg Neutrophils % 71.7 Lymphocytes % 19.6 Monocytes % 6.9 Eosinophils % 1.2 Basophils % 0.4 Neutrophils # 7.0 Lymphocytes # 1.9 Monocytes # 0.7 Eosinophils # 0.1 Basophils # 0.0 Screen NEGATIVE Baby's Blood Type A RH POSITIVE Mother's Blood Type A RH NEGATIVE Rhogam Indicated YES Rhogam Req for Mother 1
[2017-12-24] MEDS: Ibuprofen 600 MG TABLET PO PRN (08:36)
[2017-12-24] MEDS: Prenatal Vit/FA 1 EACH TABLET PO SCH (08:36)
[2017-12-24 08:53] VITALS: BP 110/76
--- NOTE | 2017-12-24 09:30 | Discharge Summary ---
Date of Encounter: 12/24/17 Time of Encounter: 09:28 - Discharge Diagnosis (1) Breast feeding status of mother Priority: Secondary Status: Acute Comments: support prn (2) Vaginal delivery Priority: Primary Status: Acute Comments: Continue routine care - Discharge Medications Home Medications: Vit/FA 1 each PO DAILY tablet 12/25/16 [Rx] Benzocaine/Menthol [place] [Dermoplast [place]] 1 appl TP QID PRN aerosol 12/24/17 [Rx] Ibuprofen [Motrin] 600 mg PO Q6HR PRN tablet 12/24/17 [Rx] Allergies/Adverse Reactions: 3 Allergy/AdvReac Type Severity Reaction Status Date / Time Penicillins Allergy Rash Verified 08/29/15 09:42 Data Procedures and tests throughout hospitalization: Laboratory Tests 12/22/17 12/22/17 12/22/17 08:56 08:56 20:08 WBC 9.9 RBC 4.10 Hgb 9.6 L Hct 31.9 L MCV 77.8 L MCH 23.4 L MCHC 30.1 L RDW 17.6 H Plt Count 236 MPV 11.6 Immature Gran % 0.3 Seg Neutrophils % 75.9 Lymphocytes % 17.0 Monocytes % 5.3 Eosinophils % 1.2 Basophils % 0.3 Neutrophils # 7.5 Lymphocytes # 1.7 Monocytes # 0.5 Eosinophils # 0.1 Basophils # 0.0 Urine Opiates Screen Negative Ur Barbiturates Screen Negative Ur Phencyclidine Scrn Negative Ur Amphetamines Screen Negative U Benzodiazepines Scrn Negative Urine Cocaine Screen Negative U Marijuana (THC) Screen Negative Screen NEGATIVE Baby's Blood Type A RH POSITIVE Mother's Blood Type A RH NEGATIVE Rhogam Indicated YES Rhogam Req for Mother 1 12/23/17 07:39 WBC 9.8 RBC 3.86 Hgb 8.9 L Hct 30.1 L MCV 78.0 L MCH 23.1 L MCHC 29.6 L RDW 17.6 H Plt Count 222 MPV 12.0 Immature Gran % 0.2 Seg Neutrophils % 71.7 Lymphocytes % 19.6 Monocytes % 6.9 Eosinophils % 1.2 Basophils % 0.4 Neutrophils # 7.0 Lymphocytes # 1.9 Monocytes # 0.7 Eosinophils # 0.1 Basophils # 0.0 Urine Opiates Screen Ur Barbiturates Screen Ur Phencyclidine Scrn Ur Amphetamines Screen U Benzodiazepines Scrn Urine Cocaine Screen U Marijuana (THC) Screen Screen Baby's Blood Type Mother's Blood Type Rhogam Indicated Rhogam Req for Mother Date of admission: 12/22/17 08:05 Primary care physician: Jerel Castro MD Consults: 12/22/17 22:21 Consult to [employer] [CONS] Routine Comment: Vaginal delivery, consult needed Discharging clinician: Sandra Hammer Anticipated date of discharge: 12/24/17 - Patient Status Disposition: Home, Self-Care Condition: Good Functional capacity at discharge: independent ambulation - Discharge Instructions Follow Up With: Jerel Castro MD [Primary Care Provider] - Leo Navas DO [Partnered Physician] - - Diet and Activity Activity: increase activity as tolerated Diet: regular diet Hospital Course Reason for admission: induction of labor Delivery: Episiotomy: none Laceration: 2nd degree Other procedures: none complications: none Discharge diagnosis: IUP at term delivered [place] baby: female (breast feeding) Time Attestation: Total time spent providing and/or coordinating discharge services: Time Spent: Less than 30 minutes Exam - Constitutional Vitals: Temp Pulse Resp BP Pulse Ox 98.3 F 76 16 110/76 99 12/24/17 07:30 12/24/17 07:30 12/24/17 07:30 12/24/17 07:30 12/23/17 19:33 General appearance IM: A&O X 3, pleasant, answers questions appropriately - Respiratory Respiratory exam: Present: CTAB - Cardiovascular Cardiovascular exam IM: Present: RRR, +S1, +S2 - GI/Abdominal GI/Abdominal exam IM: normal bowel sounds - Uterine Tone: Firm Uterus Position: 1 Finger Below Umbilicus, Midline - Extremities Exam Extremities exam IM: Present: full ROM, normal capillary refill, normal inspection - Neurological Exam Neurological exam: alert, oriented X3, reflexes normal
== END 2017-12-24 12:45 | disposition home or self-care (01) | DRG 775 ==
LOC: 1NENULAB 08:05 → 1NENUOBS 22:19
PROVIDERS: ADMIT Obstetrics & Gynecology; ATTEND Obstetrics & Gynecology